=== PATIENT | male | born 1935 | race Caucasian/White ===

== ENCOUNTER 2016-08-25 08:22 | Day surgery (SDC) | payer MEDICARE, BC ==
[2016-08-23 15:45] VITALS: BMI 19.5
[~2016-08-25 08:22] MED LIST: LACTATED RINGERS 1,000 ML IV SCH
[2016-08-25 09:45] VITALS: TEMP 98
[2016-08-25] MEDS ORDERED: LACTATED RINGERS 1,000 ML IV ONE (09:46)
[2016-08-25] MEDS ORDERED: LIDOCAINE 1% 20 ML VIAL (10MG/ML) FOR IV START INTRADERMA ONE (09:52)
[2016-08-25] MEDS ORDERED: PROPOFOL 10 MG/ML 20 ML VIAL IV ONE (10:13)
--- NOTE | 2016-08-25 10:41 | P.PCN ---
Date of Procedure: 08/25/16 Preoperative Diagnosis: Postoperative Diagnosis: Procedure(s) Performed: Procedure: Total colonoscopy. Preoperative diagnosis: Screening for neoplasia. Postoperative diagnosis: Low-grade internal hemorrhoids, otherwise, exam to the cecum within normal limits. Preparation: HalfLytely prep. Sedation: Was provided by anesthesia. Brief clinical history: The patient is an 80-year-old male who is referred for this evaluation for screening for neoplasia. The patient apparently had a positive occult blood test on his stools but has no abdominal complaints, overt bleeding or anemia. His prior colonoscopy was 8 or 9 years ago. Procedure: With the patient on his left lateral decubitus position and after informed consent and adequate sedation, the perianal area was inspected and it did not show any fissures or fistulas. There were no masses felt on digital rectal examination. The Olympus CFQ 160L video colonoscope was then inserted in the rectum in the usual fashion and advanced to the cecum. The preparation was good. The mucosa appeared healthy. No obvious pathology was noted on any evidence of bleeding or potential sources of bleeding. I retroflexed the endoscope in the rectum before the endoscope was withdrawn. Low-grade internal hemorrhoids were noted but there was no evidence of bleeding. The patient tolerated the procedure well. Plan: The patient was reassured. Discussed dietary measures and local care for hemorrhoids. He will follow up with you as planned and further plans can be made based on his course. In the absence of upper GI complaints or anemia I did not recommend upper GI workup at this time for further workup of his Hemoccult positive stools and this can be left as a contingency. Implants: Indications for Procedure: Operative Findings: Description of Procedure:
[2016-08-25 10:42] VITALS: RESP 16
[2016-08-25 10:56] VITALS: BP 97/62; PULSE 69
== END 2016-08-25 11:20 | disposition home or self-care (01) ==
LOC: ORWHC2ENDO 08:22
DX: Z12.11 Encounter for screening for malignant neoplasm of colon (principal); K64.8 Other hemorrhoids; I10 Essential (primary) hypertension; Z95.1 Presence of aortocoronary bypass graft; Z95.5 Presence of coronary angioplasty implant and graft; Z85.51 Personal history of malignant neoplasm of bladder
CPT/HCPCS: J2704; G0121

== ENCOUNTER 2016-11-09 19:33 | Emergency (ER) | payer MEDICARE, BC ==
[2016-11-09] MEDS ORDERED: NITROGLYCERIN OINT 1 INCH/GM PACKET TOPICAL STA (19:52)
[2016-11-09] MEDS ORDERED: ASPIRIN 81 MG PO STA (19:52)
--- NOTE | 2016-11-09 19:56 | ED ---
General Adult HPI - General Chief complaint: Chest Pain Stated complaint: Chest Pressure Time Seen by Provider: 11/09/16 19:35 Source: patient, RN notes reviewed Mode of arrival: ambulatory Limitations: no limitations - History of Present Illness Initial comments: This is an 81-year-old male who presents emergency Department with a past medical history significant for bypass surgery 2. Patient states lately he has been having a cough and some shortness of breath and his doctor treated for pneumonia appears to be getting better however he alycia a bunch of blood and he received a phone call today from his doctor stating that he needs to go to the emergency department. Patient's not sure why but he arrived currently. Patient denies any chest pain or palpitations patient denies any shortness breath patient states he is only coughing if he takes an extremely large breath. Patient denies any abdominal pain patient denies nausea vomiting diarrhea. Patient denies any recent fever chills or cough. - Related Data Home Medications Medication Instructions Recorded Confirmed Aspirin 81 mg PO DAILY 08/23/16 11/09/16 Carvedilol [Coreg] 6.25 mg PO BID 08/23/16 11/09/16 Clopidogrel [Plavix] 75 mg PO DAILY 08/23/16 11/09/16 Digoxin [Lanoxin] 125 mcg PO DAILY 08/23/16 11/09/16 Levofloxacin [Levaquin] 500 mg PO DAILY 11/09/16 11/09/16 methylPREDNISolone Dose Pack See Taper PO DAILY 11/09/16 11/09/16 [Medrol Dose Pack] Previous Rx's Medication Instructions Recorded Levofloxacin [Levaquin] 750 mg PO DAILY #10 tab 11/09/16 Allergies Allergy/AdvReac Type Severity Reaction Status Date / Time No Known Allergies Allergy Verified 11/09/16 20:06 Review of Systems ROS Statement: Those systems with pertinent positive or pertinent negative responses have been documented in the HPI. ROS Other: All systems not noted in ROS Statement are negative. Past Medical History Past Medical History: Cancer, Hypertension Additional Past Medical History / Comment(s): hx. bladder cancer 12 yrs. ago- was tx. w/BCG, hemorrhoids, positive occult blood History of Any Multi-Drug Resistant Organisms: None Reported Past Surgical History: Bladder Surgery, Coronary Bypass/CABG, Heart Catheterization, Heart Catheterization With Stent, Hernia Repair Additional Past Surgical History / Comment(s): triple bypass 1990, double bypass 1999, bladder surg. Past Anesthesia/Blood Transfusion Reactions: No Reported Reaction Date of Last Stent Placement:: unknown Past Psychological History: No Psychological Hx Reported Smoking Status: Former smoker Past Alcohol Use History: None Reported Past Drug Use History: None Reported - Past Family History Mother Family Medical History: No Reported History General Exam - General Exam Comments Initial Comments: GENERAL: Patient is well-developed and well-nourished. Patient is nontoxic and well- hydrated and is in no acute distress. ENT: Neck is soft and supple. No significant lymphadenopathy is noted. Oropharynx is clear. Moist mucous membranes. Neck has full range of motion without eliciting any pain. EYES: The sclera were anicteric and conjunctiva were pink and moist. Extraocular movements were intact and pupils were equal round and reactive to light. Eyelids were unremarkable. PULMONARY: Unlabored respirations. Good breath sounds bilaterally. No audible rales rhonchi or wheezing was noted. CARDIOVASCULAR: There is a regular rate and rhythm without any murmurs gallops or rubs. ABDOMEN: Soft and nontender with normal bowel sounds. No palpable organomegaly was noted. There is no palpable pulsatile mass. SKIN: Skin is clear with no lesions or rashes and otherwise unremarkable. NEUROLOGIC: Patient is alert and oriented x3. Cranial nerves II through XII are grossly intact. Motor and sensory are also intact. Normal speech, volume and content. Symmetrical smile. MUSCULOSKELETAL: Normal extremities with adequate strength and full range of motion. No lower extremity swelling or edema. No calf tenderness. LYMPHATICS: No significant lymphadenopathy is noted PSYCHIATRIC: Normal psychiatric evaluation. Normal interpersonal interactions appears functionally intact in deals appropriately with others. No signs of depression. No signs of anxiety. Limitations: no limitations Course Vital Signs 11/09/16 11/09/16 11/09/16 19:35 21:48 22:40 Temperature 97.5 F L 97.8 F 98.0 F Pulse Rate 88 81 68 Respiratory 16 19 16 Rate Blood Pressure 134/76 151/68 113/62 O2 Sat by Pulse 95 96 95 Oximetry Medical Decision Making - Medical Decision Making EKG shows normal sinus rhythm at 70 bpm [place] interval is 206 QRS is 160 QT interval 408 QTC is 465. Patient's EKG shows T-wave inversions in the precordial leads. There is no old EKG to compare to. Patient has Q waves in the inferior leads as well as. Patient's chest x-ray shows bilateral pneumonia. I wonder admit the patient but my view buttocks patient refused he states he has daycare people home so would rather given a shot as an outpatient. Patient understands that if anything gets worse he needs to come back to the emergency department immediately - Lab Data Result diagrams: 11/09/16 20:30 11/09/16 20:30 Lab Results 11/09/16 11/09/16 11/09/16 Range/Units 20:30 20:30 20:30 WBC 12.7 H (3.8-10.6) k/uL RBC 4.92 (4.30-5.90) m/uL Hgb 13.8 (13.0-17.5) gm/dL Hct 43.1 (39.0-53.0) % MCV 87.6 (80.0-100.0) fL MCH 28.1 (25.0-35.0) pg MCHC 32.1 (31.0-37.0) g/dL RDW 14.0 (11.5-15.5) % Plt Count 985 H* (150-450) k/uL Neutrophils % 82 % Lymphocytes % 10 % Monocytes % 5 % Eosinophils % 2 % Basophils % 0 % Neutrophils # 10.4 H (1.3-7.7) k/uL Lymphocytes # 1.2 (1.0-4.8) k/uL Monocytes # 0.6 (0-1.0) k/uL Eosinophils # 0.2 (0-0.7) k/uL Basophils # 0.0 (0-0.2) k/uL Manual Slide Review Performed PT (9.0-12.0) sec INR (<1.2) APTT (22.0-30.0) sec D-Dimer (<0.60) mg/L FEU Sodium 136 L (137-145) mmol/L Potassium 5.2 H (3.5-5.1) mmol/L Chloride 101 (98-107) mmol/L Carbon Dioxide 26 (22-30) mmol/L Anion Gap 9 mmol/L BUN 22 H (9-20) mg/dL Creatinine 0.98 (0.66-1.25) mg/dL Est GFR (MDRD) Af Amer >60 (>60 ml/min/1.73 sqM) Est GFR (MDRD) Non-Af >60 (>60 ml/min/1.73 sqM) Glucose 128 H (74-99) mg/dL Calcium 9.6 (8.4-10.2) mg/dL Magnesium 2.0 (1.6-2.3) mg/dL Total Bilirubin 0.4 (0.2-1.3) mg/dL AST 38 (17-59) U/L ALT 42 (21-72) U/L Alkaline Phosphatase 96 (38-126) U/L Total Creatine Kinase 106 (55-170) U/L CK-MB (CK-2) 1.4 (0.0-2.4) ng/mL CK-MB (CK-2) Rel Index 1.3 Troponin I <0.012 (0.000-0.034) ng/mL Total Protein 6.1 L (6.3-8.2) g/dL Albumin 3.4 L (3.5-5.0) g/dL 11/09/16 11/09/16 Range/Units 20:30 20:30 WBC (3.8-10.6) k/uL RBC (4.30-5.90) m/uL Hgb (13.0-17.5) gm/dL Hct (39.0-53.0) % MCV (80.0-100.0) fL MCH (25.0-35.0) pg MCHC (31.0-37.0) g/dL RDW (11.5-15.5) % Plt Count (150-450) k/uL Neutrophils % % Lymphocytes % % Monocytes % % Eosinophils % % Basophils % % Neutrophils # (1.3-7.7) k/uL Lymphocytes # (1.0-4.8) k/uL Monocytes # (0-1.0) k/uL Eosinophils # (0-0.7) k/uL Basophils # (0-0.2) k/uL Manual Slide Review PT 13.9 H (9.0-12.0) sec INR 1.4 H (<1.2) APTT 31.8 H (22.0-30.0) sec D-Dimer 0.89 H (<0.60) mg/L FEU Sodium (137-145) mmol/L Potassium (3.5-5.1) mmol/L Chloride (98-107) mmol/L Carbon Dioxide (22-30) mmol/L Anion Gap mmol/L BUN (9-20) mg/dL Creatinine (0.66-1.25) mg/dL Est GFR (MDRD) Af Amer (>60 ml/min/1.73 sqM) Est GFR (MDRD) Non-Af (>60 ml/min/1.73 sqM) Glucose (74-99) mg/dL Calcium (8.4-10.2) mg/dL Magnesium (1.6-2.3) mg/dL Total Bilirubin (0.2-1.3) mg/dL AST (17-59) U/L ALT (21-72) U/L Alkaline Phosphatase (38-126) U/L Total Creatine Kinase (55-170) U/L CK-MB (CK-2) (0.0-2.4) ng/mL CK-MB (CK-2) Rel Index Troponin I (0.000-0.034) ng/mL Total Protein (6.3-8.2) g/dL Albumin (3.5-5.0) g/dL Disposition Clinical Impression: Pneumonia Disposition: HOME SELF-CARE Instructions: Pneumonia (ED) Prescriptions: Levofloxacin [Levaquin] 750 mg PO DAILY #10 tab Referrals: Ayo Porras MD [Primary Care Provider] - 1-2 days Time of Disposition: 22:55
[2016-11-09 20:52] LABS: Basophils % (A) 0 %; CH 28.2; CHCM 32.4; Eosinophils # (A) 0.2 k/uL (0-0.7); Eosinophils % (A) 2 %; HCT 43.1 % (39.0-53.0); HDW 2.52; HGB 13.8 gm/dL (13.0-17.5); Luc # (Auto) 0.23; Luc % (Auto) 2; Lymphocytes # (A) 1.2 k/uL (1.0-4.8); Lymphocytes % (A) 10 %; MCH 28.1 pg (25.0-35.0); MCHC 32.1 g/dL (31.0-37.0); MCV 87.6 fL (80.0-100.0); Mean Platelet Volume 6.7; Monocytes # (A) 0.6 k/uL (0-1.0); Monocytes % (A) 5 %; Neutrophils # (A) 10.4 k/uL (1.3-7.7); Neutrophils % (A) 82 %; RBC 4.92 m/uL (4.30-5.90); WBC 12.7 k/uL (3.8-10.6); WBC (Perox) 12.95
--- NOTE | 2016-11-09 20:55 | XR ---
EXAMINATION TYPE: XR chest 2V DATE OF EXAM: 11/09/2016 COMPARISON: NONE HISTORY: Cough TECHNIQUE: Frontal and lateral views of the chest are obtained. FINDINGS: There are sternal wires. Heart is enlarged. There are mild bilateral pulmonary perihilar i nfiltrates. There is no pleural effusion. There is no gross heart failure. There is pleural thickenin g at the lung apices. IMPRESSION: Pleural thickening and bilateral upper lobe interstitial infiltrates. This could relate to sarcoidosis. Cardiomegaly. No heart failure.
[2016-11-09 20:59] LABS: INR 1.4 (<1.2); Partial Thromboplastin Time 31.8 sec (22.0-30.0); Prothrombin Time 13.9 sec (9.0-12.0)
[2016-11-09 21:03] LABS: ALT 42 U/L (21-72); AST 38 U/L (17-59); Alkaline Phosphatase 96 U/L (38-126); Anion Gap 9 mmol/L; Blood Urea Nitrogen 22 mg/dL (9-20); Calcium 9.6 mg/dL (8.4-10.2); Carbon Dioxide 26 mmol/L (22-30); Chloride 101 mmol/L (98-107); Glucose 128 mg/dL (74-99); Non-African American GFR(MDRD) >60 (>60 ml/min/1.73 sqM); Potassium 5.2 mmol/L (3.5-5.1); Sodium 136 mmol/L (137-145); Total Bilirubin 0.4 mg/dL (0.2-1.3); Total Protein 6.1 g/dL (6.3-8.2)
[2016-11-09 21:06] LABS: Creatine Kinase 106 U/L (55-170)
[2016-11-09 21:13] LABS: Manual Review Performed
[2016-11-09 21:19] LABS: Creatine Kinase MB 1.4 ng/mL (0.0-2.4); Troponin I <0.012 ng/mL (0.000-0.034)
[2016-11-09] MEDS ORDERED: RX INFO: IV CONTRAST WAS GIVEN 1 EACH MISC MISCELLANE PRN (21:20)
--- NOTE | 2016-11-09 22:08 | CT ---
EXAMINATION TYPE: CT chest angio for PE DATE OF EXAM: 11/09/2016 COMPARISON: NONE HISTORY: Chest pressure. CT DLP: 166.00 mGycm Automated exposure control for dose reduction was used. CONTRAST: CT Chest for pulmonary embolism performed with with IV Contrast, patient injected with 74 mL of Omnip aque 350. FINDINGS: The heart is enlarged. There are bilateral pleural effusions and slightly larger on the right side. T here is no pericardial effusion. There are sternal wires. There is groundglass interstitial pulmonary infiltrate in both lungs. There is some coalescent pulmonary infiltrate in the anterior right upper lobe and also superior segment left lower lobe. I see no filling defects in the pulmonary arteries. There are prominent central pulmonary arteries co nsistent with pulmonary hypertension. Thoracic aorta is atheromatous. There is no evidence of aortic dissection. Ascending aorta measures 3.7 cm. IMPRESSION: Cardiomegaly. Pulmonary interstitial fibrosis. Bilateral pulmonary infiltrates. No evidence of pulmon manoj embolism. Pleural effusions.
[2016-11-09] MEDS ORDERED: LEVOFLOXACIN 750 MG TAB PO STA (22:26)
[2016-11-09 22:43] VITALS: BP 113/62; PULSE 68; RESP 16; TEMP 98
== END 2016-11-09 23:20 | disposition home or self-care (01) ==
LOC: EC 19:33
DX: J18.9 Pneumonia, unspecified organism (principal); I10 Essential (primary) hypertension; Z85.51 Personal history of malignant neoplasm of bladder; Z95.1 Presence of aortocoronary bypass graft; Z95.5 Presence of coronary angioplasty implant and graft; Z87.891 Personal history of nicotine dependence; Z79.82 Long term (current) use of aspirin; Z79.02 Long term (current) use of antithrombotics/antiplatelets; Z79.899 Other long term (current) drug therapy
CPT/HCPCS: 36415; 93005; 85379; 80053; 82550; 82553; 83735; 84484; 85025; 85610; 85730; 71020; 71275; 99285; Q9967

== ENCOUNTER 2019-07-23 14:04 | Emergency (ER) | payer MEDICARE, BC ==
[2019-07-23] MEDS ORDERED: DEXTROSE 5% IN WATER 100 ML with AMIODARONE 150 MG IV ONE (14:18)
[2019-07-23] MEDS ORDERED: AMIODARONE 360 MG in DEXTROSE 5% IN WATER 200 ML IV ONE ×2 (14:18)
--- NOTE | 2019-07-23 14:29 | ED ---
General Adult HPI - General Chief complaint: Cardiac Arrest/CPR Stated complaint: Cardiac Arrest Time Seen by Provider: 07/23/19 14:06 Source: EMS, RN notes reviewed, old records reviewed Mode of arrival: ambulatory Limitations: altered mental status, physical limitation - History of Present Illness Initial comments: 83-year-old male presenting status post cardiac arrest. Patient had been at a local store when he had sudden collapse, fell back striking his head. CPR was initiated immediately. EMS had a short run time to this call. He was placed on the monitor and found to be H shockable rhythm. He was defibrillated once in the field, intubated and transported to the emergency department. He had measurable blood pressure throughout transport. He was coughing and responsive to pain. He did not receive any epinephrine or medications in the field. He was defibrillated once. Witnessed cardiac arrest. - Related Data Home Medications Medication Instructions Recorded Confirmed Aspirin 81 mg PO DAILY 08/23/16 11/09/16 Carvedilol [Coreg] 6.25 mg PO BID 08/23/16 11/09/16 Clopidogrel [Plavix] 75 mg PO DAILY 08/23/16 11/09/16 Digoxin [Lanoxin] 125 mcg PO DAILY 08/23/16 11/09/16 Levofloxacin [Levaquin] 500 mg PO DAILY 11/09/16 11/09/16 methylPREDNISolone Dose Pack See Taper PO DAILY 11/09/16 11/09/16 [Medrol Dose Pack] Previous Rx's Medication Instructions Recorded Levofloxacin [Levaquin] 750 mg PO DAILY #10 tab 11/09/16 Allergies Allergy/AdvReac Type Severity Reaction Status Date / Time No Known Allergies Allergy Verified 11/09/16 20:06 Review of Systems ROS Statement: Those systems with pertinent positive or pertinent negative responses have been documented in the HPI. ROS Other: All systems not noted in ROS Statement are negative. Past Medical History Past Medical History: Cancer, Hypertension Additional Past Medical History / Comment(s): hx. bladder cancer 12 yrs. ago-was tx. w/BCG, hemorrhoids, positive occult blood History of Any Multi-Drug Resistant Organisms: None Reported Past Surgical History: Bladder Surgery, Coronary Bypass/CABG, Heart Catheterization, Heart Catheterization With Stent, Hernia Repair Additional Past Surgical History / Comment(s): triple bypass 1990, double bypass 1999, bladder surg. Past Anesthesia/Blood Transfusion Reactions: No Reported Reaction Date of Last Stent Placement:: unknown Past Psychological History: No Psychological Hx Reported Smoking Status: Former smoker Past Alcohol Use History: None Reported Past Drug Use History: None Reported - Past Family History Mother Family Medical History: No Reported History General Exam Limitations: altered mental status, physical limitation General appearance: alert, in no apparent distress Head exam: Present: normocephalic, other (Bleeding from the right external auditory canal.) Eye exam: Present: normal appearance, PERRL ENT exam: Absent: TM's normal bilaterally (Right tympanic membrane cannot be visualized secondary to blood in the external auditory canal.) Neck exam: Present: other (C-collar in place.) Respiratory exam: Present: normal lung sounds bilaterally, respiratory distress, other (Breath sounds with BVM, once placed on vent- breathing over the vent) Cardiovascular Exam: Present: regular rate, normal rhythm GI/Abdominal exam: Present: soft. Absent: distended, tenderness, guarding Extremities exam: Present: normal inspection, normal capillary refill. Absent: pedal edema Neurological exam: Present: other (Withdrawal state pain, does not localize to pain.) Skin exam: Present: warm, dry, intact. Absent: cyanosis, diaphoretic Course Vital Signs 07/23/19 07/23/19 07/23/19 14:06 14:21 15:00 Temperature 97.6 F Pulse Rate 75 83 66 Respiratory 18 23 20 Rate Blood Pressure 92/71 105/65 93/57 O2 Sat by Pulse 100 99 Oximetry EKG Findings - EKG Comments: EKG Findings:: EKG: Sinus rhythm with first-degree AV block, right bundle branch block, rate of 73, [place] interval 272, QRS duration 164, QTC 504, no ST segment elevation, T-wave inversion in precordial leads. Similar compared to prior in 2017. Medical Decision Making - Medical Decision Making 83-year-old male presents status post cardiac arrest, he was in a shockable rhythm by EMS and had return of spontaneous circulation after one defibrillation. No drugs given by EMS. There was called and CPR which had been initiated at the onset and was continued by EMS. Exact downtime unknown however according to EMS there was minimal total CPR time. Patient arrives with stable blood pressure, he's in sinus rhythm. He is intubated by EMS prior to arrival. He has bilateral breath sounds and is continued on minimal vent settings he is breathing over the vent. His pupils are reactive bilaterally. He will withdraw to pain. He has a cough reflex. He has significant bleeding from the external auditory canal. Even the head trauma and bleeding from his right ear head CT is performed which shows temporal bone fracture, small epidural and subdural hematoma over the right temporal bone. I had initially discussed case with Dr. Ferguson covering for cardiology regarding V. fib arrest in urgent heart cath, however given this significant head trauma and intracranial hemorrhage and will be transferred for urgent neurosurgical evaluation. He has been initiated on amiodarone. Anticoagulation will be held secondary to intracranial hemorrhage. He will be transferred to [facility], case had been discussed with the ER physician Dr. Gooden, who will accept transfer. Laboratories reveal mild leukocytosis, hemoglobin stable, potassium 5.3, magnesium is 2.3, initial troponin is negative. Diagnosis: V. fib arrest, right temporal bone fracture, intracranial hemorrhage, vent dependent respiratory failure. - Lab Data Result diagrams: 07/23/19 14:06 07/23/19 14:06 Lab Results 07/23/19 07/23/19 07/23/19 Range/Units 14:06 14:06 14:06 WBC 13.3 H (3.8-10.6) k/uL RBC 5.01 (4.30-5.90) m/uL Hgb 14.0 (13.0-17.5) gm/dL Hct 43.7 (39.0-53.0) % MCV 87.3 (80.0-100.0) fL MCH 28.0 (25.0-35.0) pg MCHC 32.0 (31.0-37.0) g/dL RDW 13.9 (11.5-15.5) % Plt Count 744 H (150-450) k/uL Neutrophils % 58 % Lymphocytes % 28 % Monocytes % 7 % Eosinophils % 3 % Basophils % 1 % Neutrophils # 7.7 (1.3-7.7) k/uL Lymphocytes # 3.8 (1.0-4.8) k/uL Monocytes # 0.9 (0-1.0) k/uL Eosinophils # 0.4 (0-0.7) k/uL Basophils # 0.1 (0-0.2) k/uL PT 11.4 (9.0-12.0) sec INR 1.1 (<1.2) APTT 25.7 (22.0-30.0) sec Sodium 133 L (137-145) mmol/L Potassium 5.3 H (3.5-5.1) mmol/L Chloride 101 (98-107) mmol/L Carbon Dioxide 21 L (22-30) mmol/L Anion Gap 11 mmol/L BUN 17 (9-20) mg/dL Creatinine 1.15 (0.66-1.25) mg/dL Est GFR (CKD-EPI)AfAm 68 (>60 ml/min/1.73 sqM) Est GFR (CKD-EPI)NonAf 59 (>60 ml/min/1.73 sqM) Glucose 160 H (74-99) mg/dL Calcium 9.8 (8.4-10.2) mg/dL Magnesium 2.3 (1.6-2.3) mg/dL Total Bilirubin 0.6 (0.2-1.3) mg/dL AST 48 (17-59) U/L ALT 24 (4-49) U/L Alkaline Phosphatase 65 (38-126) U/L Troponin I (0.000-0.034) ng/mL Total Protein 6.5 (6.3-8.2) g/dL Albumin 3.9 (3.5-5.0) g/dL 07/23/19 Range/Units 14:06 WBC (3.8-10.6) k/uL RBC (4.30-5.90) m/uL Hgb (13.0-17.5) gm/dL Hct (39.0-53.0) % MCV (80.0-100.0) fL MCH (25.0-35.0) pg MCHC (31.0-37.0) g/dL RDW (11.5-15.5) % Plt Count (150-450) k/uL Neutrophils % % Lymphocytes % % Monocytes % % Eosinophils % % Basophils % % Neutrophils # (1.3-7.7) k/uL Lymphocytes # (1.0-4.8) k/uL Monocytes # (0-1.0) k/uL Eosinophils # (0-0.7) k/uL Basophils # (0-0.2) k/uL PT (9.0-12.0) sec INR (<1.2) APTT (22.0-30.0) sec Sodium (137-145) mmol/L Potassium (3.5-5.1) mmol/L Chloride (98-107) mmol/L Carbon Dioxide (22-30) mmol/L Anion Gap mmol/L BUN (9-20) mg/dL Creatinine (0.66-1.25) mg/dL Est GFR (CKD-EPI)AfAm (>60 ml/min/1.73 sqM) Est GFR (CKD-EPI)NonAf (>60 ml/min/1.73 sqM) Glucose (74-99) mg/dL Calcium (8.4-10.2) mg/dL Magnesium (1.6-2.3) mg/dL Total Bilirubin (0.2-1.3) mg/dL AST (17-59) U/L ALT (4-49) U/L Alkaline Phosphatase (38-126) U/L Troponin I 0.012 (0.000-0.034) ng/mL Total Protein (6.3-8.2) g/dL Albumin (3.5-5.0) g/dL Critical Care Time Critical Care Time: Yes Total Critical Care Time: 35 Disposition Clinical Impression: Cardiac arrest with ventricular fibrillation, Temporal bone fracture, Epidural hematoma, Intracranial hemorrhage Disposition: OTHER INSTITUTION NOT DEFINED Condition: Serious Is patient prescribed a controlled substance at d/c from ED?: No Referrals: None,Stated [Primary Care Provider] - 1-2 days - Out of Hospital Transfer - Req. Specs Out of Hospital Transfer - Requested Specifics: Other Emergency Center (Transferred to [facility]
--- NOTE | 2019-07-23 14:33 | XR ---
EXAMINATION TYPE: XR chest 1V portable DATE OF EXAM: 07/23/2019 COMPARISON: Chest x-ray and CTA chest November 09, 2016. HISTORY: Cardiac arrest. Chest pain. TECHNIQUE: Single frontal view of the chest is obtained. FINDINGS: There is new endotracheal tube at inferior clavicular margin roughly 3 to 4 cm above the c shyann. There is new orogastric tube projecting below diaphragm. Overlying EKG leads along with right midthoracic defibrillator pad. Post-CABG changes with mediastinal clips and sternal wires is redemonstrated. Background chronic emph ysematous change with moderate to severe biapical pleural/parenchymal scarring and new mild [place] i nterstitial edema. No pleural effusion or pneumothorax noted bilaterally. Persistent cardiomegaly. Os seous structures are intact. IMPRESSION: 1. New endotracheal and orogastric tubes satisfactory in position. 2. Chronic emphysematous and parenchymal fibrotic changes along with cardiomegaly are redemonstrated. New mild bilateral interstitial edema suggests fluid overload state and/or CHF exacerbation.
[2019-07-23 14:39] LABS: Basophils # (A) 0.1 k/uL (0-0.2); Basophils % (A) 1 %; Eosinophils # (A) 0.4 k/uL (0-0.7); Eosinophils % (A) 3 %; HCT 43.7 % (39.0-53.0); Lymphocytes # (A) 3.8 k/uL (1.0-4.8); Lymphocytes % (A) 28 %; MCV 87.3 fL (80.0-100.0); Mean Platelet Volume 7.4; Monocytes # (A) 0.9 k/uL (0-1.0); Monocytes % (A) 7 %; Neutrophils # (A) 7.7 k/uL (1.3-7.7); Neutrophils % (A) 58 %; Platelet Count 744 k/uL (150-450); RBC 5.01 m/uL (4.30-5.90); RDW 13.9 % (11.5-15.5); WBC 13.3 k/uL (3.8-10.6)
[2019-07-23 14:45] LABS: Albumin 3.9 g/dL (3.5-5.0); Calcium 9.8 mg/dL (8.4-10.2); INR 1.1 (<1.2); Magnesium 2.3 mg/dL (1.6-2.3); Partial Thromboplastin Time 25.7 sec (22.0-30.0); Potassium 5.3 mmol/L (3.5-5.1); Prothrombin Time 11.4 sec (9.0-12.0); Total Bilirubin 0.6 mg/dL (0.2-1.3); Total Protein 6.5 g/dL (6.3-8.2)
[2019-07-23] MEDS ORDERED: LORazepam 2 MG/ML INJ IV STA (14:45)
[2019-07-23] MEDS ORDERED: NALOXONE 0.4 MG/ML 1 ML VIAL IV PRN (14:52)
[2019-07-23] MEDS ORDERED: SODIUM CHLORIDE 0.9% 1,000 ML IV SCH (15:00)
--- NOTE | 2019-07-23 15:03 | CT ---
EXAMINATION TYPE: CT brain cspine wo con DATE OF EXAM: 07/23/2019 COMPARISON: Prior trauma CT January 13, 2011. HISTORY: Unresponsive Fall injury with headache and neck pain. CT DLP: 1256.9 mGycm. Automated Exposure Control for Dose Reduction was Utilized. TECHNIQUE: CT scan of the head and cervical spine are performed without contrast. FINDINGS: There is new left extra-axial hemorrhage over the temporal lobe for reference axial image s 14 through 23. No midline shift is seen. Moderate diffuse ventricular and sulcal prominence. Some l ow attenuation in the periventricular white matter. Scleral calcification right globe redemonstrated. Nasal septum remains deviated to left of midline. There is new linear lucency with ill-defined fluid right temporal bone into mastoid air cells extending into external auditory canal which now has incr eased density. Some increased soft tissue density likely surrounds right middle ear ossicles. Hyperde nse material fills right sphenoid sinus along with less prominent air fluid level left sphenoid sinus Cervical spine is visualized in its entirety from C1 through upper thoracic levels and redemonstrates grade 1 retrolisthesis C5 on C6 and more prominent grade 1 retrolisthesis C6 on C7 along with stable anterolisthesis C4 on C5 without evidence of acute fracture or dislocation. Prevertebral soft tissu e appears within normal limits. The C1-C2 articulation is within normal limits on the coronal images . Vertebral body heights are maintained. Advanced disc space narrowing C5-C6 and C6-C7 levels with po sterior spur disc complexes efface the anterior thecal sac are again seen. Axial images show uncovert ebral facet degenerative changes bilaterally contributing to multilevel neural foraminal narrowing gr eatest right C3-C4 and left C4-C5 along with right C5-C6 levels. There is partial visualization of en dotracheal and orogastric tubes. There is emphysematous and parenchymal fibrotic changes in the visua lized lung apices. IMPRESSION: 1. There is no acute fracture or dislocation evident in the cervical spine. Multilevel spondylolisthe sis and degenerative changes as detailed above. 2. Small extra-axial suspected both subarachnoid and epidural hemorrhage over the left temporal lobe. Acute osseous fractures through the right mastoid and temporal bone region with hemorrhage into the mastoid air cells and external auditory canal. Further investigation with dedicated CT IAC advised to better evaluate and characterize fracture. Involvement of right middle ear ossicles not excluded. Ne w hyperdense material filling the sphenoid sinuses right greater than left could reflect blood produc t or possible sinus disease. Critical results of acute intracranial hemorrhage and temporal bone fracture communicated to ordering ER physician via telephone at time of dictation.
[2019-07-23 15:29] VITALS: BP 101/52; PULSE 70; RESP 22; TEMP 97.8
[2019-07-23] MEDS ORDERED: AMIODARONE 300 MG in DEXTROSE 5% IN WATER 250 ML IV SCH ×2 (20:18)
== END 2019-07-23 16:11 | disposition short-term general hospital (02) ==
LOC: EC 14:04
DX: I46.9 Cardiac arrest, cause unspecified (principal); I49.01 Ventricular fibrillation; S02.19XA Other fracture of base of skull, initial encounter for closed fracture; I62.9 Nontraumatic intracranial hemorrhage, unspecified; R05 Cough; R41.82 Altered mental status, unspecified; I10 Essential (primary) hypertension; Z79.82 Long term (current) use of aspirin; Z79.02 Long term (current) use of antithrombotics/antiplatelets; Z95.5 Presence of coronary angioplasty implant and graft; Z85.51 Personal history of malignant neoplasm of bladder; Z87.891 Personal history of nicotine dependence; Z98.890 Other specified postprocedural states; Z95.1 Presence of aortocoronary bypass graft; W18.39XA Other fall on same level, initial encounter
CPT/HCPCS: 99291 ×2; 96365 ×2; 96375 ×3; 92950 ×2; 36415; 80053; 83735; 84484; 85025; 85610; 85730; 71045; 72125; 70450; J2060; J0282 ×2; 94002